=== PATIENT | female | born 1985 | race Caucasian/White ===

== ENCOUNTER 2019-02-16 19:52 | Emergency (ER) | payer SELFPAY ==
[~2019-02-16] VITALS: Ht 152.4 cm; Wt 39.9 kg
[2019-02-16 20:10] VITALS: BP 112/70
--- NOTE | 2019-02-16 20:18 | NUR ---
PT AMBULATED TO LOBBY WITH VSS. URINE SAMPLE PROVIDED
--- NOTE | 2019-02-16 21:07 | NUR ---
CALLED FOR PT IN LOBBY/ OUTSIDE, NO RESPONSE.
--- NOTE | 2019-02-16 21:29 | NUR ---
PT CALLED IN LOBBY/OUTSIDE WITH NO ANSWER.
--- NOTE | 2019-02-16 21:29 | NUR ---
PATIENT LEFT WITHOUT BEING SEEN BY DR. CLEMENTS. NO FURTHER CARE PROVIDED FOR PATIENT.
== END 2019-02-16 21:07 | disposition left against medical advice (07) ==
LOC: MED 19:52
DX: R10.13 Epigastric pain (principal); R11.10 Vomiting, unspecified; Z53.21 Procedure and treatment not carried out due to patient leaving prior to being seen by health care provider
CPT/HCPCS: 81002; 81025

== ENCOUNTER 2022-12-19 21:53 | Emergency (ER) | payer BC, OTHER ==
[~2022-12-19] VITALS: Ht 139.7 cm; Wt 44.0 kg
[2022-12-19 22:26] VITALS: BP 110/54; PULSE 89; RESP 18; TEMP 98; O2SAT 95
[2022-12-20 03:30] VITALS: BP 110/54; PULSE 89; RESP 18; TEMP 98; O2SAT 95
== END 2022-12-20 03:30 | disposition left against medical advice (07) ==
LOC: MED 21:53
DX: R10.13 Epigastric pain (principal); Z53.21 Procedure and treatment not carried out due to patient leaving prior to being seen by health care provider
CPT/HCPCS: 99281